=== PATIENT | female | born 1955 | race African-American/Black ===

== ENCOUNTER 2016-11-07 16:24 | Emergency (ER) | payer MEDICARE ==
[~2016-11-07] VITALS: Ht 162.6 cm; Wt 110.2 kg
== END 2016-11-07 19:23 | disposition home or self-care (01) ==
LOC: SED 16:24
DX: K04.7 Periapical abscess without sinus (principal); I10 Essential (primary) hypertension; E78.5 Hyperlipidemia, unspecified; E11.9 Type 2 diabetes mellitus without complications
CPT/HCPCS: 99282